=== PATIENT | male | born 1965 | race Caucasian/White ===

== ENCOUNTER → 2019-01-27 | Outpatient (CLI) | payer OTHER ==
[~2019-01-27] MED LIST: CEPHALEXIN500 M1 PO; NORCO 325 MG-51 TAB PO
[2019-01-27 10:12] LABS: HIV 1/2 Antibodies Non-Reactive; HIV-1p24 Antigen Non-Reactive
== END ==
LOC: COL.LAB 08:16 → COL.ER 08:16
PROVIDERS: Emergency Medicine
DX: Z11.9 Encounter for screening for infectious and parasitic diseases, unspecified (principal)